=== PATIENT | male | born 1970 | race African-American/Black ===

== ENCOUNTER 2016-03-30 12:45 | Inpatient (IN) | payer OTHER ==
[2016-03-30 14:09] VITALS: BMI 31.6
--- NOTE | 2016-03-30 17:20 | HP ---
CIWA Score - CIWA Score Nausea/Vomitin-Mild Nausea/No Vomiting Muscle Tremors: 4-Moderate,w/Arms Extend Anxiety: 4-Mod. Anxious/Guarded Agitation: 4-Moderately Restless Paroxysmal Sweats: 2 Orientation: 1-Uncertain about Date Tacttile Disturbances: 0-None Auditory Disturbances: 0-None Visual Disturbances: 0-None Headache: 0-None Present CIWA-Ar Total Score: 16 Admission ROS BHS - HPI Chief Complaint: WITHDRAWAL SX Allergies/Adverse Reactions: Allergies Allergy/AdvReac Type Severity Reaction Status Date / Time Fish Containing Products Allergy Intermediate Vomiting Verified 03/30/16 15:31 History of Present Illness: 46 YEARS OLD MALE WITH LONG HISTORY OF ALCOHOL DEPENDENCE HAS HIV HEPATITIS C AND DEPRESSION IS ADMITTED TO DETOX Exam Limitations: No Limitations - Ebola screening Have you traveled outside of the country in the last 21 days: No Have you had contact with anyone from an Ebola affected area: No Have you been sick,other than usual withdrawal symptoms: No Do you have a fever: No - Review of Systems Constitutional: Chills, Changes in sleep, Weight Stable EENT: reports: No Symptoms Reported Respiratory: reports: No Symptoms reported Cardiac: reports: No Symptoms Reported GI: reports: Nausea, Poor Fluid Intake, Abdominal cramping : reports: No Symptoms Reported Musculoskeletal: reports: Back Pain Integumentary: reports: No Symptoms Reported Neuro: reports: Tremors Endocrine: reports: No Symptoms Reported Hematology: reports: No Symptoms Reported Psychiatric: reports: Judgement Intact, Depressed Other Systems: Reviewed and Negative Patient History - Patient Medical History Hx Anemia: No Hx Asthma: No Hx Chronic Obstructive Pulmonary Disease (COPD): No Hx Cancer: No Hx Cardiac Disorders: No Hx Congestive Heart Failure: No Hx Hypertension: No Hx Hypercholesterolemia: No Hx Pacemaker: No HX Cerebrovascular Accident: No Hx Seizures: No Hx Dementia: No Hx Diabetes: No Hx Gastrointestinal Disorders: No Hx Liver Disease: No Hx Genitourinary Disorders: No Hx Sexually Transmitted Disorders: No Hx Renal Disease (ESRD): No Hx Human Immunodeficiency Virus (HIV): Yes (COMPLERA LAST DOSE 03/25/16) Hx Hepatitis C: Yes Hx Depression: Yes Hx Suicide Attempt: Yes (Pt tried to overdose in 2013) Hx Bipolar Disorder: No Hx Schizophrenia: No - Patient Surgical History Past Surgical History: No - PPD History Previous Implant?: Yes Documented Results: Positive w/o proof Implanted On Prior [facility] Admission?: No PPD to be Administered?: No - Smoking Cessation Smoking history: Former smoker Have you smoked in the past 12 months: No Aproximately how many cigarettes per day: 0 If you are a former smoker, when did you quit?: 2014 Cigars Per Day: 0 Hx Chewing Tobacco Use: No Initiated information on smoking cessation: No - Substance & Tx. History Hx Alcohol Use: Yes Hx Substance Use: Yes Substance Use Type: Alcohol, Cocaine, Marijuana Hx Substance Use Treatment: Yes - Substances Abused Alcohol Route: Oral Frequency: Daily Amount used: 4 BEERS/ 1 PINT VODKA Age of first use: 14 Date of Last Use: 03/30/16 Cocaine Route: Smoking Frequency: Daily Amount used: $20 Age of first use: 13 Date of Last Use: 03/25/16 Marijuana/Hashish Route: Smoking Frequency: Daily Amount used: 1-2 BLUNTS Age of first use: 15 Date of Last Use: 03/29/16 Family Disease History - Family Disease History Family Disease History: [place]: Grandparent, Mother, Other: Father (AIDS) Admission Physical Exam S - Vital Signs Vital Signs: Vital Signs - 24 hr 03/30/16 14:08 Temperature 99.0 F Pulse Rate 77 Respiratory 16 Rate Blood Pressure 109/69 - Physical General Appearance: Yes: Nourished, Appropriately Dressed, Mild Distress, Tremorous, Irritable, Sweating, Anxious HEENTM: Yes: Hearing grossly Normal, Normal ENT Inspection, Normocephalic, Normal Voice Respiratory: Yes: Chest Non-Tender, Lungs Clear, Normal Breath Sounds, No Respiratory Distress, No Accessory Muscle Use Neck: Yes: Supple, Trachea in good position Breast: Yes: Breasts Symetrical Cardiology: Yes: Regular Rhythm, Regular Rate, S1, S2 Abdominal: Yes: Normal Bowel Sounds, Non Tender, Soft Genitourinary: Yes: Within Normal Limits Back: Yes: Normal Inspection Musculoskeletal: Yes: full range of Motion, Gait Steady, Back pain Extremities: Yes: Normal Inspection, Normal Range of Motion, Non-Tender, Tremors Neurological: Yes: Alert, Motor Strength 5/5, Normal Response, Depressed Affect Integumentary: Yes: Warm, Moist Lymphatic: Yes: Within Normal Limits - Diagnostic (1) Human immunodeficiency virus (HIV) seropositivity Current Visit: Yes Status: Chronic Comment: COMPLERA LAST DOSE 7+ DAYS AGO (2) ppd+ Current Visit: Yes Status: Resolved Comment: CHEST X RAY PENDING (3) Hepatitis C antibody test positive Current Visit: Yes Status: Chronic (4) Alcohol dependence with uncomplicated withdrawal Current Visit: Yes Status: Acute Cleared for Admission [facility] - Detox or Rehab [facility] Level of Care: Medically Managed Detox Regimen/Protocol: Librium [facility] Breath Alcohol Content Breath Alcohol Content: 0 Urine Drug Screen - Results Drug Screen Negative: No Urine Drug Screen Results: THC-Marijuana, SONJA-Cocaine
[2016-03-30] MEDS ORDERED: LOPERAMIDE HCL 2 MG CAPSULE PO PRN (17:22)
[2016-03-30] MEDS ORDERED: diphenhydrAMINE HCL 50 MG CAPSULE PO PRN (17:22)
[2016-03-30] MEDS ORDERED: ACETAMINOPHEN 325 MG TABLET (FP) PO PRN (17:22)
[2016-03-30] MEDS ORDERED: IBUPROFEN 400 MG TABLET (FP) PO PRN (17:22)
[2016-03-30] MEDS ORDERED: P-EPHED 60MG/TRIPROLIDI 2.5MG TABLET PO PRN (17:22)
[2016-03-30] MEDS ORDERED: guaiFENesin/D-METHORPHAN HB 10 ML UNIT-DOSE CUPS PO PRN (17:22)
[2016-03-30] MEDS ORDERED: hydrOXYzine PAMOATE 50 MG CAPSULE (FP) PO PRN (17:22)
[2016-03-30] MEDS ORDERED: MAGNESIUM CITRATE 300 ML BOTTLE PO PRN (17:22)
[2016-03-30] MEDS ORDERED: MAG HYDROX/AL HYDROX/SIMETH 30 ML UNIT-DOSE CUP PO PRN (17:22)
[2016-03-30] MEDS ORDERED: MENTHOL/PHENOL 1 EACH UD MM PRN (17:22)
[2016-03-30] MEDS ORDERED: chlordiazePOXIDE HCL 25 MG CAPSULE PO PRN (17:22)
[2016-03-30] MEDS ORDERED: MAGNESIUM HYDROX 2400MG/30ML ORAL SUSPENSION 30 ML CUP PO PRN (17:22)
[2016-03-30 19:58] LABS: URINE APPEARANCE CLEAR; URINE BILIRUBIN NEGATIVE (NEGATIVE); URINE BLOOD NEGATIVE (NEGATIVE); URINE COLOR AMBER; URINE GLUCOSE (UA) NEGATIVE (NEGATIVE); URINE KETONE NEGATIVE (NEGATIVE); URINE LEUK ESTERASE NEGATIVE (NEGATIVE); URINE NITRITE NEGATIVE (NEGATIVE); URINE PROTEIN NEGATIVE (NEGATIVE); URINE UROBILINOGEN 2.0 E.U/dl E.U./dl (0.2-1.0)
[2016-03-30] MEDS: THIAMINE HCL 100 MG TABLET (FP) PO SCH (22:29)
[2016-03-30] MEDS: chlordiazePOXIDE HCL 25 MG CAPSULE PO SCH (22:29)
[2016-03-31] MEDS: chlordiazePOXIDE HCL 25 MG CAPSULE PO SCH ×4 (06:16→22:41)
[2016-03-31 09:57] LABS: MEAN CELL VOLUME 62.6 fl (80-96); MEAN PLT VOLUME 10.2 fl (7.5-11.1); PLATELET COUNT 234 K/MM3 (134-434); RDW 16.2 % (11.9-15.9); WHITE BLOOD COUNT 7.4 K/mm3 (4.0-10.0)
--- NOTE | 2016-03-31 09:59 | CONSULT ---
[facility] Psychiatric Consult - Data Date of interview: 03/31/16 Admission source: [facility] Identifying data: This is 46 years old male with no psychiatric hospitalization history intopxicated with: Alcohol, Cocaine and Nicotine Substance Abuse History: Smoking history: Former smoker. Have you smoked in the past 12 months: No. Aproximately how many cigarettes per day: 0. If you are a former smoker, when did you quit?: 2014. Cigars Per Day: 0. Hx Chewing Tobacco Use: No. Initiated information on smoking cessation: No. - Substance & Tx. History. Hx Alcohol Use: Yes. Hx Substance Use: Yes. Substance Use Type : Alcohol, Cocaine, Marijuana. Hx Substance Use Treatment: Yes. - Substances Abused. Alcohol. Route: Oral. Frequency: Daily. Amount used: 4 BEERS/ 1 PINT VODKA. Age of first use: 14. Date of Last Use: 03/30/16. Cocaine. Route: Smoking. Frequency: Daily. Amount used: $20. Age of first use: 13. Date of Last Use: 03/25/16. Marijuana/Hashish. Route: Smoking. Frequency: Daily. Amount used: 1-2 BLUNTS. Age of first use: 15. Date of Last Use: 03/29 Medical History: HepC+, HIV, HTN, COPD, Thalassemia traits, Psychiatric History: Denies past psychiatric history, no medications taking prior to admission Physical/Sexual Abuse/Trauma History: Denies Additional Comment: Observation. Detox Unit Care Protocol Mental Status Exam - Mental Status Exam Alert and Oriented to: Person Patient Appearance: Unkempt Mood: Sad Affect: Flat Patient Behavior: Sedated Speech Pattern: Delayed Voice Loudness: Mildly Soft/Quiet Thought Process: Circumstantial Thought Disorder: Being Controlled Hallucinations: Denies Suicidal Ideation: Denies Homicidal Ideation: Denies Insight/Judgement: Fair Sleep: Difficulty falling asleep Appetite: Fair Muscle strength/Tone: Normal Gait/Station: Shuffling Additional Comments: Observation. Detox Unit Care Protocol Psychiatric Findings - Problem List ([place] 1, 2,3) (1) Alcohol dependence with uncomplicated withdrawal Current Visit: Yes Status: Acute (2) Alcohol dependence Current Visit: No Status: Active (3) Cocaine dependence Current Visit: No Status: Active (4) Drug-induced mood disorder Current Visit: Yes Status: Acute - Initial Treatment Plan Initial Treatment Plan: Observation. Detox Unit Care Protocol
[2016-03-31 10:06] LABS: MCH 19.4 pg (25.7-33.7)
[2016-03-31 10:46] LABS: ALBUMIN 4.1 g/dl (3.4-5.0); CALCIUM 8.8 mg/dL (8.5-10.1); CREATININE 1.4 mg/dL (0.7-1.3); TOT PROT 7.6 g/dl (6.4-8.2)
[2016-03-31] MEDS: PRENATAL VITAMINS W/ FOLIC ACID TABLET (FP) PO SCH (11:04)
--- NOTE | 2016-03-31 11:29 | PN ---
[facility] CIWA - CIWA Score Nausea/Vomitin-No Nausea/No Vomiting Muscle Tremors: 4-Moderate,w/Arms Extend Anxiety: 4-Mod. Anxious/Guarded Agitation: 4-Moderately Restless Paroxysmal Sweats: 1-Minimal Palms Moist Orientation: 0-Oriented Tacttile Disturbances: 3-Moderate Itch/Numb/Burn Auditory Disturbances: 0-None Visual Disturbances: 0-None Headache: 0-None Present CIWA-Ar Total Score: 16 BHS Progress Note (SOAP) Subjective: ANXIETY,SWEATS,FATIGUE. Objective: 03/31/16 11:28 Vital Signs Temperature 96.7 F L 03/31/16 10:06 Pulse Rate 87 03/31/16 10:06 Respiratory Rate 20 03/31/16 10:06 Blood Pressure 153/93 03/31/16 10:06 O2 Sat by Pulse Oximetry (%) Laboratory Last Values WBC 7.4 K/mm3 (4.0-10.0) 03/31/16 06:10 RBC 5.86 M/mm3 (4.00-5.60) H 03/31/16 06:10 Hgb 11.4 GM/dL (11.7-16.9) L 03/31/16 06:10 Hct 36.7 % (35.4-49) 03/31/16 06:10 MCV 62.6 fl (80-96) L 03/31/16 06:10 MCHC 31.0 g/dl (32.0-35.9) L 03/31/16 06:10 RDW 16.2 % (11.9-15.9) H 03/31/16 06:10 Plt Count 234 K/MM3 (134-434) 03/31/16 06:10 MPV 10.2 fl (7.5-11.1) D 03/31/16 06:10 Urine Color Marisol 03/30/16 19:00 Urine Appearance Clear 03/30/16 19:00 Urine pH 5.0 (5.0-8.0) 03/30/16 19:00 Ur Specific [place] 1.032 (1.001-1.035) 03/30/16 19:00 Urine Protein Negative (NEGATIVE) 03/30/16 19:00 Urine Glucose (UA) Negative (NEGATIVE) 03/30/16 19:00 Urine Ketones Negative (NEGATIVE) 03/30/16 19:00 Urine Blood Negative (NEGATIVE) 03/30/16 19:00 Urine Nitrite Negative (NEGATIVE) 03/30/16 19:00 Urine Bilirubin Negative (NEGATIVE) 03/30/16 19:00 Urine Urobilinogen 2.0 e.u/dl E.U./dl (0.2-1.0) 03/30/16 19:00 Ur Leukocyte Esterase Negative (NEGATIVE) 03/30/16 19:00 OTHER LABS PENDING Assessment: 03/31/16 11:29 WITHDRAWAL SX Plan: CONTINUE DETOX
[2016-03-31 14:50] LABS: HYPOCHROMIA 4+; MICROCYTOSIS 1+; TARGET CELLS 2+; TEAR DROP CELLS 1+
--- NOTE | 2016-03-31 15:08 | EKG ---
Test Reason : Blood Pressure : / mmHG Vent. Rate : 065 BPM Atrial Rate : 065 BPM P-R Int : 148 ms QRS Dur : 082 ms QT Int : 426 ms P-R-T Axes : 036 057 054 degrees QTc Int : 443 ms NORMAL SINUS RHYTHM EARLY REPOLARIZATION NORMAL ECG NO PREVIOUS ECGS AVAILABLE Confirmed by JAYDON PULIDO, OTIS ([id number]) on 03/31/2016 3:07:55 PM Referred By: Confirmed By:OTIS INTERIANO MD
[2016-03-31] MEDS: THIAMINE HCL 100 MG TABLET (FP) PO SCH (22:41)
[2016-04-01] MEDS: chlordiazePOXIDE HCL 25 MG CAPSULE PO SCH ×3 (05:58→17:30)
[2016-04-01] MEDS: PRENATAL VITAMINS W/ FOLIC ACID TABLET (FP) PO SCH (10:59)
--- NOTE | 2016-04-01 11:22 | PN ---
[facility] CIWA - CIWA Score Nausea/Vomitin-No Nausea/No Vomiting Muscle Tremors: 4-Moderate,w/Arms Extend Anxiety: 4-Mod. Anxious/Guarded Agitation: 3 Paroxysmal Sweats: 1-Minimal Palms Moist Orientation: 0-Oriented Tacttile Disturbances: 3-Moderate Itch/Numb/Burn Auditory Disturbances: 0-None Visual Disturbances: 0-None Headache: 0-None Present CIWA-Ar Total Score: 15 S Progress Note (SOAP) Subjective: ANXIETY,SWEATS/CHILLS,FATIGUE. Objective: 04/01/16 11:22 Vital Signs 04/01/16 04/01/16 04/01/16 03:30 06:43 10:51 Temperature 97.1 F L 95.5 F L Pulse Rate 79 82 Respiratory 18 18 18 Rate Blood Pressure 135/94 133/92 Assessment: 04/01/16 11:22 WITHDRAWAL SX Plan: CONTINUE DETOX
[2016-04-01] MEDS: chlordiazePOXIDE 5 MG CAPSULE PO SCH (23:36)
[2016-04-01] MEDS: THIAMINE HCL 100 MG TABLET (FP) PO SCH (23:36)
[2016-04-02] MEDS: chlordiazePOXIDE 5 MG CAPSULE PO SCH ×3 (06:44→17:46)
[2016-04-02] MEDS: PRENATAL VITAMINS W/ FOLIC ACID TABLET (FP) PO SCH (11:22)
[2016-04-02] MEDS: LOSARTAN POTASSIUM 50 MG TABLET (FP) PO SCH (11:22)
--- NOTE | 2016-04-02 13:11 | PN ---
S Progress Note (SOAP) Subjective: Restlessness, interrupted sleep, anxiety Objective: 04/02/16 13:10 Vital Signs Temperature 97.5 F L 04/02/16 09:54 Pulse Rate 67 04/02/16 09:54 Respiratory Rate 18 04/02/16 09:54 Blood Pressure 141/94 04/02/16 09:54 O2 Sat by Pulse Oximetry (%) Laboratory Last Values WBC 7.4 K/mm3 (4.0-10.0) 03/31/16 06:10 RBC 5.86 M/mm3 (4.00-5.60) H 03/31/16 06:10 Hgb 11.4 GM/dL (11.7-16.9) L 03/31/16 06:10 Hct 36.7 % (35.4-49) 03/31/16 06:10 MCV 62.6 fl (80-96) L 03/31/16 06:10 MCHC 31.0 g/dl (32.0-35.9) L 03/31/16 06:10 RDW 16.2 % (11.9-15.9) H 03/31/16 06:10 Plt Count 234 K/MM3 (134-434) 03/31/16 06:10 MPV 10.2 fl (7.5-11.1) D 03/31/16 06:10 Hypochromic-Microcytic 4+ 03/31/16 06:10 Basophilic Stippling 1+ 03/31/16 06:10 Microcytosis 1+ 03/31/16 06:10 Target Cells 2+ 03/31/16 06:10 Tear Drop Cells 1+ 03/31/16 06:10 Morphology Comment Slide scanned 03/31/16 06:10 Sodium 140 mmol/L (136-145) 03/31/16 06:10 Potassium 3.6 mmol/L (3.5-5.1) 03/31/16 06:10 Chloride 104 mmol/L (98-107) 03/31/16 06:10 Carbon Dioxide 23 mmol/L (21-32) 03/31/16 06:10 Anion Gap 13 (8-16) 03/31/16 06:10 BUN 17 mg/dL (7-18) D 03/31/16 06:10 Creatinine 1.4 mg/dL (0.7-1.3) H D 03/31/16 06:10 Creat Clearance w eGFR 54.32 (>60) 03/31/16 06:10 Random Glucose 96 mg/dL (74-106) 03/31/16 06:10 Calcium 8.8 mg/dL (8.5-10.1) 03/31/16 06:10 Total Bilirubin 1.0 mg/dL (0.2-1.0) D 03/31/16 06:10 AST 40 U/L (15-37) H 03/31/16 06:10 ALT 56 U/L (12-78) D 03/31/16 06:10 Alkaline Phosphatase 78 U/L (45-117) 03/31/16 06:10 Total Protein 7.6 g/dl (6.4-8.2) 03/31/16 06:10 Albumin 4.1 g/dl (3.4-5.0) 03/31/16 06:10 Urine Color Marisol 03/30/16 19:00 Urine Appearance Clear 03/30/16 19:00 Urine pH 5.0 (5.0-8.0) 03/30/16 19:00 Ur Specific [place] 1.032 (1.001-1.035) 03/30/16 19:00 Urine Protein Negative (NEGATIVE) 03/30/16 19:00 Urine Glucose (UA) Negative (NEGATIVE) 03/30/16 19:00 Urine Ketones Negative (NEGATIVE) 03/30/16 19:00 Urine Blood Negative (NEGATIVE) 03/30/16 19:00 Urine Nitrite Negative (NEGATIVE) 03/30/16 19:00 Urine Bilirubin Negative (NEGATIVE) 03/30/16 19:00 Urine Urobilinogen 2.0 e.u/dl E.U./dl (0.2-1.0) 03/30/16 19:00 Ur Leukocyte Esterase Negative (NEGATIVE) 03/30/16 19:00 RPR Titer Nonreactive (NONREACTIVE) 03/31/16 06:10 labs noted Assessment: withdrawal symptoms Plan: Continue Detox
[2016-04-02] MEDS: THIAMINE HCL 100 MG TABLET (FP) PO SCH (22:23)
[2016-04-02] MEDS: chlordiazePOXIDE HCL 10 MG CAPSULE PO SCH (22:23)
[2016-04-03] MEDS: chlordiazePOXIDE HCL 10 MG CAPSULE PO SCH ×2 (06:00→11:07)
[2016-04-03 11:06] VITALS: BP 151/105; PULSE 79; TEMP 96.8
[2016-04-03] MEDS: PRENATAL VITAMINS W/ FOLIC ACID TABLET (FP) PO SCH (11:07)
[2016-04-03] MEDS: LOSARTAN POTASSIUM 50 MG TABLET (FP) PO SCH (11:07)
--- NOTE | 2016-04-03 13:51 | DS ---
[facility] Detox Discharge Summary Admission Date: 03/30/16 Discharge Date: 04/03/16 - History Present History: Alcohol Dependence, Cannabis Dependence, Cocaine Dependence Pertinent Past History: Hepatitis C - Physical Exam Results Vital Signs: Vital Signs Temperature 96.8 F L 04/03/16 11:05 Pulse Rate 79 04/03/16 11:05 Respiratory Rate 18 04/03/16 11:05 Blood Pressure 151/105 04/03/16 11:05 O2 Sat by Pulse Oximetry (%) Pertinent Admission Physical Exam Findings: Withdrawal symptoms Laboratory Tests 03/30/16 03/31/16 03/31/16 19:00 06:10 06:10 WBC 7.4 RBC 5.86 H Hgb 11.4 L Hct 36.7 MCV 62.6 L MCHC 31.0 L RDW 16.2 H Plt Count 234 MPV 10.2 D Hypochromic-Microcytic 4+ Basophilic Stippling 1+ Microcytosis 1+ Target Cells 2+ Tear Drop Cells 1+ Morphology Comment Slide scanned Sodium 140 Potassium 3.6 Chloride 104 Carbon Dioxide 23 Anion Gap 13 BUN 17 D Creatinine 1.4 H D Creat Clearance w eGFR 54.32 Random Glucose 96 Calcium 8.8 Total Bilirubin 1.0 D AST 40 H ALT 56 D Alkaline Phosphatase 78 Total Protein 7.6 Albumin 4.1 Urine Color Marisol Urine Appearance Clear Urine pH 5.0 Ur Specific [place] 1.032 Urine Protein Negative Urine Glucose (UA) Negative Urine Ketones Negative Urine Blood Negative Urine Nitrite Negative Urine Bilirubin Negative Urine Urobilinogen 2.0 e.u/dl Ur Leukocyte Esterase Negative RPR Titer 03/31/16 06:10 WBC RBC Hgb Hct MCV MCHC RDW Plt Count MPV Hypochromic-Microcytic Basophilic Stippling Microcytosis Target Cells Tear Drop Cells Morphology Comment Sodium Potassium Chloride Carbon Dioxide Anion Gap BUN Creatinine Creat Clearance w eGFR Random Glucose Calcium Total Bilirubin AST ALT Alkaline Phosphatase Total Protein Albumin Urine Color Urine Appearance Urine pH Ur Specific [place] Urine Protein Urine Glucose (UA) Urine Ketones Urine Blood Urine Nitrite Urine Bilirubin Urine Urobilinogen Ur Leukocyte Esterase RPR Titer Nonreactive Labs noted - Treatment Hospital Course: Detox Protocol Followed, Detoxed Safely, Responded well, Discharged Condition Good - Medication Discharge Medications: Ambulatory Orders Emtricitab/Rilpivirine/Tenofov [Complera -] 1 each PO DAILY 03/30/16 - Diagnosis (1) Cocaine dependence Status: Chronic (2) Alcohol dependence with uncomplicated withdrawal Status: Acute (3) Hepatitis C antibody test positive Status: Chronic (4) Essential hypertension Status: Chronic (5) Human immunodeficiency virus (HIV) seropositivity Status: Chronic - AMA Did Patient Leave Against Medical Advice: No
== END 2016-04-03 09:30 | disposition home or self-care (01) | DRG 774 ==
LOC: YASAS 12:45 → Y3N 16:07
PROVIDERS: ADMIT Internal Medicine; ATTEND Internal Medicine
PROC: HZ2ZZZZ Detoxification Services for Substance Abuse Treatment (ICD-10-PCS; principal; 2016-04-03)
DX: F10.230 Alcohol dependence with withdrawal, uncomplicated (principal); F14.20 Cocaine dependence, uncomplicated; F19.24 Other psychoactive substance dependence with psychoactive substance-induced mood disorder; I10 Essential (primary) hypertension; B18.2 Chronic viral hepatitis C; Z21 Asymptomatic human immunodeficiency virus [HIV] infection status; R76.11 Nonspecific reaction to tuberculin skin test without active tuberculosis; Z59.0 Homelessness
CPT/HCPCS: 36415; 71020-TC; 80053; 81003; 85027; 86593; 93005; 93010